=== PATIENT | male | born 1970 | race Two or more races ===

== ENCOUNTER 2019-07-07 14:24 | Emergency (ER) | payer OTHER ==
[~2019-07-07] VITALS: Ht 172.7 cm; Wt 70.3 kg
[~2019-07-07 14:24] MED LIST: ATOR20TA OR; ENAL5TAB OR; GLIM2TAB33 OR; LEVO100T83 OR; METF-372 OR
[2019-07-07 15:36] LABS: Urine Bacteria NONE SEEN /hpf (None Seen); Urine Blood Negative /uL (Negative); Urine Mucus FEW (None Seen); Urine Specific Gravity 1.025 (1.001-1.035); Urine WBC 1 /hpf (0 - 3)
[2019-07-07 15:40] LABS: Basophils # (auto) 0 uL; Basophils % (auto) 0.2 % (0.0-2.0); Eosinophils # (auto) 0 uL; Eosinophils % (auto) 0.3 % (0.0-7.0); Hematocrit 46.7 % (41.0-53.0); Hemoglobin 15.8 g/dL (13.5-17.5); Lymphocytes # (auto) 1.3 uL; Lymphocytes % (auto) 13.6 % (10.0-50.0); Mean Corpuscular Hemoglobin 30.8 pg (28.0-32.0); Mean Corpuscular Hgb Conc. 33.9 g/dL (32.0-36.0); Mean Corpuscular Volume 90.9 fL (80.0-100.0); Monocytes # (auto) 0.6 uL; Monocytes % (auto) 6.2 % (0.0-12.0); Neutrophils # (auto) 7.7 uL; Neutrophils % (auto) 79.7 % (37.0-80.0); Platelet Count (auto) 171 10^3/uL (140-450); Red Blood Cells 5.14 10^6/uL (4.5-5.90); Red Cell Distribution Width 12.8 % (11.8-14.3); White Blood Cell 9.6 10^3/uL (4.4-10.8)
[2019-07-07 15:51] LABS: Albumin 2.4 g/dL (3.4-5.0); Anion Gap 8 (5-15); BUN/Creatinine Ratio 25.3; Blood Urea Nitrogen 25 mg/dL (7-18); Calcium 7.6 mg/dL (8.5-10.1); Carbon Dioxide 28 mmol/L (21-32); Chloride 100 mmol/L (98-107); GFR African American 104 mL/min; GFR Non-African American 86 mL/min; Potassium 4.1 mmol/L (3.5-5.1); Sodium 136 mmol/L (136-145)
[2019-07-07 15:56] LABS: Alanine Aminotransferase 41 U/L (16-61); Alkaline Phosphatase 99 U/L (45-117); Aspartate Aminotransferase 17 U/L (15-37); Bilirubin, Total 1.1 mg/dL (0.2-1.0); Total Protein 7.4 g/dL (6.4-8.2)
[2019-07-07 16:03] LABS: Glucose 226 mg/dL (74-106)
[2019-07-07 17:52] VITALS: BP 122/76
== END 2019-07-07 17:56 | disposition home or self-care (01) ==
LOC: ER 14:34
DX: E11.65 Type 2 diabetes mellitus with hyperglycemia (principal); E43 Unspecified severe protein-calorie malnutrition; E78.5 Hyperlipidemia, unspecified; I10 Essential (primary) hypertension; Z68.23 Body mass index [BMI] 23.0-23.9, adult
CPT/HCPCS: 36415; 74176; 80053; 81001; 84484; 85025; 93005

== ENCOUNTER 2024-08-21 11:41 | Emergency (ER) | payer BC ==
[~2024-08-21] VITALS: Ht 170.2 cm; Wt 72.0 kg
[~2024-08-21 11:41] MED LIST changes: -ENAL5TAB OR; +ENAL5TAB22 OR; +LEVO100T3 OR; -LEVO100T83 OR
--- NOTE | 2024-08-21 11:59 | ED.PDOC ---
History of Present Illness(SKN HPI Comments A 53 YEAR OLD MALE PRESENTS TO THE ED WITH COMPLAINT OF GENERALIZED BODY RASH. PATIENT STATES HE HAS BEEN EXPERIENCING A GENERALIZED BODY RASH OFF AND ON FOR THE PAST 1 MONTH. PATIENT NOTES HE HAS TRIED OTC MEDICATIONS WITH NO IMPROVEMENT IN HIS SYMPTOMS. PATIENT DENIES FEVER, CHILLS, SHORTNESS OF BREATH, CHEST PAIN, ABDOMINAL PAIN, NAUSEA, VOMITING, HEADACHE, OR OTHER COMPLAINTS. NO OTHER SYMPTOMS OR MODIFYING FACTORS AT THIS TIME. PATIENT IS ALERT, ORIENTED X 4, AND HAS STEADY GAIT. Time Seen by MD: 11:42 History of Present Illness: Nurses Notes, Medications, Allergies Allergies: Coded Allergies: NO KNOWN ALLERGIES (Unverified , 01/24/10) Home Meds Reported Medications Glimepiride (Glimepiride) 2 Mg Tab, 2 MG OR BID 01/25/10 Atorvastatin Calcium (Lipitor) 20 Mg Tab, 20 MG OR qhs 01/25/10 Metformin Hydrochloride (Metformin Hcl) 1,000 Mg Tab, 1000 MG OR BID 01/25/10 Enalapril Maleate (Enalapril Maleate) 5 Mg Tab, 5 MG OR DAILY 01/25/10 Levothyroxine Sodium (Synthroid) 100 Mcg Tab, 100 MCG OR DAILY 01/25/10 Information Source: Patient Mode of Arrival: Ambulatory Severity: Moderate Timing: Days Duration: Since onset, Days Prehospital treatment: None Location: Generalized Mechanism: Spontaneous Onset Developed: Generalized erythema, Pruritus, Rash Occurence: Indoors Object: None Condition of Object: None Retained Foreign Body: No Wound Type: None Immunization Status of Animal: NA Tetanus: Unknown History of: None Associated Signs and Symptoms: Redness Past Medical History PAST MEDICAL HISTORY: DM, High Lipids, HTN, Thyroid Surgical History: Denies all surgeries Family History Family History: Reviewed,noncontributory to illness Social History Smoker: Non-Smoker Alcohol: Denies ETOH Use Drugs: Denies Drug Use Lives In: Home Constitutional: denies: chills, diaphoresis, fatigue, fever, malaise, sweats, weakness, others EENTM: denies: blurred vision, double vision, ear bleeding, ear discharge, ear drainage, ear pain, ear ringing, eye pain, eye redness, hearing loss, mouth pain, mouth swelling, nasal discharge, nose bleeding, nose congestion, nose pain, photophobia, tearing, throat pain, throat swelling, voice changes, others Respiratory: denies: cough, hemoptysis, orthopnea, SOB at rest, shortness of breath, SOB with excertion, stridor, wheezing, others Cardiovascular: denies: chest pain, dizzy spells, diaphoresis, Dyspnea on exertion, edema, irregular heart beat, left arm pain, lightheadedness, palpitations, PND, syncope, others Gastrointestinal: denies: abdomen distended, abdominal pain, blood streaked bowels, constipated, diarrhea, dysphagia, difficulty swallowing, hematemesis, melena, nausea, poor appetite, poor fluid intake, rectal bleeding, rectal pain, vomiting, others Genitourinary: denies: burning, dysuria, flank pain, frequency, hematuria, incontinence, penile discharge, penile sore, pain, testicle pain, testicle swelling, urgency, others Neurological: denies: dizziness, fainting, headache, left sided numbness, left sided weakness, numbness, paresthesia, pre-existing deficit, right sided numbness, right sided weakness, seizure, speech problems, tingling, tremors, weakness, others Musculoskeletal: denies: back pain, gout, joint pain, joint swelling, muscle pain, muscle stiffness, neck pain, others Integumetry: reports: dryness, rash (GENERALIZED RASH); denies: bruises, change in color, change in hair/nails, laceration, lesions, lumps, wounds, others Allergic/Immunocompromised: reports: Hives, Itching; denies: Difficulty Healing, Frequent Infections, others Hematologic/Lymphatic: denies: anemia, blood clots, easy bleeding, easy bruising, swollen glands, others Endocrine: denies: excessive hunger, excessive sweating, excessive thirst, excessive urination, flushing, intolerance to cold, intolerance to heat, unexplained weight gain, unexplained weight loss, others Psychiatric: denies: anxiety, bipolar disorder, depression, hopeless, panic disorder, schizophrenia, sleepless, suicidal, others All Other Systems: Reviewed and Negative Physical Exam General Appearance: No Apparent Distress, Normal HEENT: Normal ENT Inspection, PERRL/EOMI, Pharynx Normal, TMs Normal Neck: Full Range of Motion, Non-Tender, Normal, Normal Inspection Respiratory: Chest Non-Tender, Lungs Clear, No Accessory Muscle Use, No Respiratory Distress, Normal Breath Sounds Cardiovascular: No Edema, No JVD, No Murmur, No Gallop, Normal Peripheral Pulses, Regular Rate/Rhythm Breast Exam: Deferred Gastrointestinal: No Organomegaly, Non Tender, No Pulsatile Mass, Normal Bowel Sounds, Soft Genitalia: Deferred Pelvic: Deferred Rectal: Deferred Extremities: No calf tenderness, Normal capillary refill, Normal inspection, Normal range of motion, Non-tender, No pedal edema Musculoskeletal : Apperance: Normal Neurologic: Alert, equipment man II-XII nml as Tested, No Motor Deficits, Normal Affect, Normal Mood, No Sensory Deficits Cerebellar Function: Normal Reflexes: Normal Skin: Dry, Rash (ERYTHEMA SKIN RASH WITH HIVES ON UPPER AND LOWER BODY REGION, NO TENDERNESS, SWELLING AND DEFORMITY. ), Warm Peripheral Pulses: 2+ carotid (R), 2+ carotid (L), 2+ Radial (R), 2+ Radial (L) Lymphatic: No Adenopathy Was a procedure done? Was a procedure done?: No Differential Diagnosis (INTG) Differential Diagnosis: N/A Differential Diagnosis: Atopic dermatitis, Contact Dermatitis, Impetigo, Intertrigo, Scabies, Tinea, Urticaria Differential Diagnosis: N/A Abscess: N/A Differential Diagnosis: N/A X-Ray, Labs, Meds, VS Vital Signs Date Time Temp Pulse Resp B/P (MAP) Pulse Ox O2 Delivery O2 Flow Rate FiO2 08/21/24 12:37 99.0 111 16 127/79 (95) 95 99.0 08/21/24 12:37 111 16 95 Room Air* 0 21 08/21/24 11:50 99.0 111 1 127/79 (95) 95 Current Medications Medications (Trade) Dose Ordered Sig/Aym Route Start Time Stop Time Status Last Admin Epinephrine HCl 0.3 mg ONCE ONCE SC 08/21/24 12:45 08/21/24 12:46 DC 08/21/24 12:52 Methylprednisolone Sodium Succinate (Solu Medrol) 125 mg ONCE ONCE IM 08/21/24 12:45 08/21/24 12:46 DC 08/21/24 12:51 X-Ray, Labs, Meds, VS Comment EXTERNAL NOTES: NONE LABS ORDERED: NONE REVIEWED AND INTERPRETED RESULTS: NONE INDEPENDENT HISTORIANS: NONE TREATMENT: EPI 0.3MG SQ AND SOLUMEDROL 125MG IM PATIENT'S CASE AND RESULTS HAVE BEEN DISCUSSED WITH THE ED ATTENDING PHYSICIAN AND THEY AGREE WITH MY PLAN OF CARE. I HAVE INSTRUCTED THE PATIENT TO FOLLOW UP WITH HIS PCP IN 1-2 DAYS. THE PATIENT FULLY UNDERSTANDS THEIR RESULTS AND ARE AWARE THEY NEED TO FOLLOW UP WITH THEIR PCP FOR FURTHER EVALUATION IF THEIR SYMPTOMS PERSIST. Time of 1ST Reevaluation: 13:58 Reevaluation 1ST: Improved Patient Education/Counseling: Diagnosis, Treatment, Need For Follow Up Family Education/Counseling: Diagnosis, Treatment, Need For Follow Up Medical Screening: No EMC Exist At This Time Departure 1 Departure Time of Disposition: 14:00 Impression: Primary Impression: Allergic reaction Qualified Codes: T78.40XA - Allergy, unspecified, initial encounter Disposition: HOME / SELF CARE / HOMELESS Condition: Stable Additional Instructions: FOLLOW-UP WITH PCP IN 1 TO 2 DAYS. TAKE MEDICATIONS PRESCRIBED. RETURN TO ED FOR ANY NEW OR WORSENING SYMPTOMS. e-Prescriptions Hydroxyzine Pamoate (Vistaril) 25 Mg Cap 50 MG PO BID, #30 CAP Prov: TIA HAMMOND 08/21/24 Methylprednisolone (Medrol Dosepak) 4 Mg Jagdish 4 MG PO UD, #21 TAB UAD Prov: TIA HAMMOND 08/21/24 Discharged With: Self Critical Care Note Critical Care Time?: No Stability Stability form required: No Heart Score Heart Score: Heart Score Response (Comments) Value History N/A 0 EKG N/A 0 Age N/A 0 Risk Factors N/A 0 Troponin N/A 0 Total 0 I personally scribed for TIA HAMMOND ([email or web address]) on 08/21/24 at 12:51. Electronically submitted by Enrique Sarmiento ([email or web address]). TIA HAMMOND Aug 21, 2024 11:59
[2024-08-21 12:37] VITALS: BP 127/79; PULSE 111; RESP 16; TEMP 99; O2SAT 95
[2024-08-21] MEDS: methylPREDNISolone SOD SUCC 125 MG/2 ML VL IM ONE (12:51)
[2024-08-21] MEDS: EPINEPHrine HCL 1 MG/1 ML AMP SC ONE (12:52)
[2024-08-21] MEDS ORDERED: HYDR25CA PO (14:00)
[2024-08-21] MEDS ORDERED: METH4PAK PO (14:00)
== END 2024-08-21 14:13 | disposition home or self-care (01) ==
LOC: ER 11:41
DX: T78.49XA Other allergy, initial encounter (principal); I10 Essential (primary) hypertension; E11.9 Type 2 diabetes mellitus without complications; E78.5 Hyperlipidemia, unspecified; E03.9 Hypothyroidism, unspecified; Z79.84 Long term (current) use of oral hypoglycemic drugs; Z79.899 Other long term (current) drug therapy; Z79.890 Hormone replacement therapy; X58.XXXA Exposure to other specified factors, initial encounter
CPT/HCPCS: 96372; 99284; J0171; J2919